=== PATIENT | female | born 2000 | race Caucasian/White ===

== ENCOUNTER 2021-02-28 23:24 | Emergency (ER) | payer OTHER ==
[2021-02-28] MEDS ORDERED: Ondansetron ODT 4 MG TAB ONE (23:55)
== END 2021-03-01 00:30 | disposition home or self-care (01) ==
LOC: CSHERS 23:24
DX: R19.7 Diarrhea, unspecified (principal); R11.2 Nausea with vomiting, unspecified
CPT/HCPCS: 99283; Q0162

== ENCOUNTER 2021-09-17 13:27 | Emergency (ER) | payer OTHER | END 2021-09-17 16:38 | disposition home or self-care (01) | LOC: CSHERS 13:27 | DX: S09.90XA Unspecified injury of head, initial encounter (principal); W51.XXXA Accidental striking against or bumped into by another person, initial encounter | CPT/HCPCS: 70450 ==

== ENCOUNTER 2022-01-15 01:58 | Emergency (ER) | payer OTHER ==
[2022-01-15] MEDS ORDERED: Ondansetron ODT 4 MG TAB ONE (02:19)
[2022-01-15] MEDS ORDERED: Pantoprazole 40 MG VIAL ONE (02:35)
[2022-01-15] MEDS ORDERED: Famotidine/PF 20 mg/2ml Vial ONE (02:35)
[2022-01-15 02:57] LABS: #Basophils 0.1 10x3/uL (0.0-0.2); #Eosinphils 0.1 10x3/uL (0.0-0.5); #Monocytes 0.9 10x3/uL (0.0-1.1); #Neutrophils 5.8 10x3/uL (1.5-8.4); %Basophils 0.9 % (0.0-2.0); %Eosinophils 1.3 % (0.0-6.0); %Lymphocytes 33.4 % (18.0-47.0); %Monocytes 8.9 % (0.0-10.0); %Neutrophils 55.3 % (40.0-75.0); Hemoglobin 14.2 g/dL (12.0-15.5); Mean Corpuscular HGB CONC 35.7 g/dL (32.0-36.0); Mean Corpuscular Hemoglobin 30.7 pg (27.0-33.0); Mean Corpuscular Volume 86.1 fl (81.6-98.3); Mean Platelet Volume 9.7 fl (7.4-10.4); Platelet Count 326 10x3/uL (150-450); RBC Distribution Width 12.8 % (11.5-14.5); Red Blood Cell (RBC) Count 4.62 10x6/uL (3.90-5.03); White Blood Cell (WBC) Count 10.5 10x3/uL (3.5-10.5)
[2022-01-15 03:04] LABS: BHCG - Serum Negative (NEGATIVE); Pregs Control Background? CLEAR/WHITE (CLR/WHITE); Pregs Control Bar Appear? YES (CONTROL BAR)
[2022-01-15 03:14] LABS: ALT (SGPT) 17 U/L (8-55); AST (SGOT) 16 U/L (5-34); Albumin 4.1 g/dL (3.5-5.0); Alkaline Phosphatase 77 U/L (40-110); Anion Gap 14 mmol/L (10-20); BUN (Urea Nitrogen) 8 mg/dL (7.0-18.7); Bilirubin, Total 0.2 mg/dL (0.2-1.2); Calc. Creatinine Clearance 0 mL/min (70-130); Calcium 9.6 mg/dL (7.8-10.44); Carbon Dioxide 22 mmol/L (22-29); Chloride 108 mmol/L (98-107); Globulin 3.1 g/dL (2.4-3.5); Glucose 94 mg/dL (70-105); Lipase 28 U/L (8-78); Potassium 4.1 mmol/L (3.5-5.1); Protein, Total 7.2 g/dL (6.0-8.3); Sodium 140 mmol/L (136-145)
[2022-01-15 04:58] LABS: Bilirubin Neg (Negative); Blood, Urine Negative (Negative); Clarity Clear (Clear); Glucose, Urine (Dipstick) Normal (Negative); Ketone, Urine Negative (Negative); Leukocyte Negative (Negative); Nitrite Negative (Negative); Protein, Urine (Dipstick) Negative (Neg-Trace); Urobilinogen Normal mg/dL (Less than 2)
== END 2022-01-15 04:50 | disposition home or self-care (01) ==
LOC: CSHERS 01:58
DX: R10.84 Generalized abdominal pain (principal); R11.0 Nausea
CPT/HCPCS: 74177; 80053; 81003; 83690; 84703; 85025; 96374; 96375; C9113; Q0162; S0028

== ENCOUNTER 2022-05-01 01:31 | Emergency (ER) | payer OTHER | END 2022-05-01 02:28 | disposition home or self-care (01) | LOC: CSHERS 01:31 | DX: R51.9 Headache, unspecified (principal); R11.0 Nausea; H53.149 Visual discomfort, unspecified | CPT/HCPCS: 96374; 96375 ==